=== PATIENT | female | born 1960 | race Caucasian/White ===

== ENCOUNTER 2021-07-29 13:07 | Emergency (ER) | payer BC, OTHER ==
[2021-07-29 13:49] LABS: BASOPHILS # (AUTO) 0.1 10^3/uL (0.0-0.1); BASOPHILS % (AUTO) 0.8 %; EOSINOPHILS % (AUTO) 0.2 %; HCT - HEMATOCRIT 39.8 % (37.0-47.0); HGB - HEMOGLOBIN 12.3 g/dL (12.0-16.0); LYMPHOCYTES # (AUTO) 1.1 10^3/uL (1.5-3.5); LYMPHOCYTES % (AUTO) 12.9 %; MEAN CORPUSCULAR HEMOGLOBIN 26.5 pg (27.0-31.0); MEAN CORPUSCULAR HGB CONC 30.9 g/dL (32.0-36.0); MEAN CORPUSCULAR VOLUME 85.8 fL (81.0-99.0); MEAN PLATELET VOLUME 9.4 fL (7.9-10.8); MONOCYTES # (AUTO) 0.9 10^3/uL (0.0-1.0); MONOCYTES % (AUTO) 10.6 %; NEUTROPHILS # (AUTO) 6.3 10^3/uL (1.5-6.6); NEUTROPHILS % (AUTO) 75.3 %; PLT - PLATELET COUNT 259 10^3/uL (130-450); RED BLOOD COUNT 4.64 10^6/uL (4.20-5.40); RED CELL DISTRIBUTION WIDTH 16.9 % (12.0-15.0); WHITE BLOOD COUNT 8.3 x10^3/uL (4.8-10.8)
[2021-07-29 14:01] LABS: ALBUMIN 3.7 g/dL (3.2-5.5); BILIRUBIN,TOTAL 0.7 mg/dL (0.2-1.0); CALCIUM 9.1 mg/dL (8.5-10.3); CREATININE 0.7 mg/dL (0.4-1.0); POTASSIUM 4.1 mmol/L (3.5-5.0); TOTAL PROTEIN 7.4 g/dL (6.7-8.2)
[2021-07-29 14:01] LABS: BILIRUBIN,URINE NEGATIVE (NEGATIVE); GLUCOSE, URINE (UA) NEGATIVE (NEGATIVE); KETONES,URINE (UA) NEGATIVE (NEGATIVE); LEUKOCYTE ESTERASE, URINE TRACE (NEGATIVE); NITRITE,URINE NEGATIVE (NEGATIVE); OCCULT BLOOD,URINE SMALL (NEGATIVE); PROTEIN,URINE NEGATIVE (NEGATIVE); UROBILINOGEN,URINE 0.2 (NORMAL) E.U./dL (NORMAL)
[2021-07-29 14:02] LABS: CLARITY,URINE CLEAR (CLEAR)
[2021-07-29 14:13] LABS: BACTERIA,URINE Rare /HPF (None Seen); RBC,URINE 0-5 /HPF (0-5); SQUAMOUS EPITHELIAL CELL,UR MOD Squamous (<= Few); WBC,URINE 0-3 /HPF (0-5)
[2021-07-29] MEDS ORDERED: fentaNYL 100 MCG/2 ML VIAL IVP STA ×2 (14:24→15:29)
--- NOTE | 2021-07-29 14:30 | ED Physician Documentation ---
History of Present Illness - Stated complaint Stated Complaint: R SIDE PX - Chief complaint Chief Complaint: Abd Pain - History obtained from History obtained from: Patient - History of Present Illness Timing: Yesterday Pain level max: 8 Pain level now: 8 - Additonal information Additional information: 61-year-old female presents to the emergency department with right sided abdominal pain since yesterday. She is visiting from [place]. History of a gastric sleeve in 2014. Cholecystectomy prior to that. Total hysterectomy as well. Pain is worse with palpation and movement. No fevers or chills. Mild nausea. No vomiting. Has not had similar symptoms previously. No urinary symptoms. No difficulty breathing or chest pain. 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 - Present Medications Home Medications: Ambulatory Orders Medication Instructions Recorded Confirmed Ondansetron Odt [Zofran] 4 mg TL Q6H PRN #10 tablet 07/29/21 Oxycodone HCl/Acetaminophen 1 - 2 each PO Q6H PRN #20 tablet 07/29/21 [Percocet 5-325 mg Tablet] predniSONE [Deltasone] 10 mg PO [id number] #42 tab 07/29/21 - Allergies Allergies/Adverse Reactions: Allergies Allergy/AdvReac Type Severity Reaction Status Date / Time cephalexin [From Keflex] Allergy Nausea Verified 07/29/21 13:28 codeine Allergy Itching Verified 07/29/21 13:28 hydromorphone [From Dilaudid] Allergy Rash Verified 07/29/21 13:28 Penicillins Allergy Hives Verified 07/29/21 13:28 - Living Situation Living Situation: reports: With family Living Arrangement: reports: At home PD ED PE NORMAL - Vitals Vital signs reviewed: Yes - General General: Alert and oriented X 3, No acute distress, Well developed/nourished - HEENT HEENT: Moist mucous membranes - Neck Neck: Supple, no meningeal sign - Cardiac Cardiac: RRR - Respiratory Respiratory: No respiratory distress, Clear bilaterally - Abdomen Abdomen: Normal bowel sounds, Soft, Non distended, Other (TTP R side of the abdomen. no peritoneal signs. ) - Back Back: No CVA TTP, No spinal TTP - Derm Derm: Warm and dry - Extremities Extremities: No edema - Neuro Neuro: Alert and oriented X 3 - Psych Psych: Normal mood, Normal affect Results - Vitals Vitals: Vital Signs - 24 hr 07/29/21 07/29/21 07/29/21 13:29 14:48 16:00 Temperature 37 C Heart Rate 75 67 64 Respiratory 18 16 18 Rate Blood Pressure 132/73 H 108/96 H 103/89 H O2 Saturation 99 97 98 07/29/21 17:42 Temperature 37.2 C Heart Rate 60 Respiratory 18 Rate Blood Pressure 124/62 O2 Saturation 100 Oxygen O2 Source Room air - Labs Labs: Laboratory Tests 07/29/21 07/29/21 07/29/21 13:25 13:42 13:42 WBC 8.3 RBC 4.64 Hgb 12.3 Hct 39.8 MCV 85.8 MCH 26.5 L MCHC 30.9 L RDW 16.9 H Plt Count 259 MPV 9.4 Neut # (Auto) 6.3 Lymph # (Auto) 1.1 L [place] # (Auto) 0.9 Eos # (Auto) 0.0 Baso # (Auto) 0.1 Absolute Nucleated RBC 0.00 Nucleated RBC % 0.0 Sodium 138 Potassium 4.1 Chloride 104 Carbon Dioxide 26 Anion Gap 8.0 BUN 16 Creatinine 0.7 Estimated GFR (MDRD) 85 L Glucose 87 Calcium 9.1 Total Bilirubin 0.7 AST 23 ALT 17 Alkaline Phosphatase 89 Total Protein 7.4 Albumin 3.7 Globulin 3.7 Albumin/Globulin Ratio 1.0 Lipase 43 Urine Color YELLOW Urine Clarity CLEAR Urine pH 7.0 Ur Specific [employer] 1.010 Urine Protein NEGATIVE Urine Glucose (UA) NEGATIVE Urine Ketones NEGATIVE Urine Occult Blood SMALL H Urine Nitrite NEGATIVE Urine Bilirubin NEGATIVE Urine Urobilinogen 0.2 (NORMAL) Ur Leukocyte Esterase TRACE H Urine RBC 0-5 Urine WBC 0-3 Ur Squamous Epith Cells MOD Squamous H Urine Bacteria Rare Ur Microscopic Review INDICATED Urine Culture Comments NOT INDICATED PD MEDICAL DECISION MAKING - ED course Complexity details: reviewed results, re-evaluated patient, considered differential, d/w patient ED course: 61-year-old female presents to the emergency department with abdominal pain. Remote history of gastric sleeve. No significant lab abnormalities. 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 We will start on pain medication and steroids for home and have her follow-up with her doctor when she returns home later this week for further evaluation of this. Patient is well- appearing, nontoxic. Afebrile. Patient counseled regarding signs and symptoms for which I believe and urgent re-evaluation would be necessary. Patient with good understanding of and agreement to plan and is comfortable going home at this time This document was made in part using voice recognition software. While efforts are made to proofread this document, sound alike and grammatical errors may occur. IMPRESSION: 1. Mid mesenteric fat stranding as described above which may represent mesenteric panniculitis. 2. Prior gastric sleeve surgery. No bowel obstruction or abnormal bowel wall thickening. Mild fecal stasis in the colon. No free fluid of free air. 3. Bibasilar dependent atelectasis. 4. Hepatic steatosis. No discrete hepatic lesion. Prior cholecystectomy. 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 We will start you on steroids for this. Is importantly follow-up with your doctor next week for further care and likely further testing. Please return if you worsen. Your prescriptions were sent to [facility] in [place] I am prescribing a short course of narcotic pain medication for you. These are potentially dangerous and addictive medications that should be used carefully. These medications may constipate you. Take an [id number] stool softener (docusate) twice daily with plenty of water while taking these medications. If you go 24 hours without a bowel movement, take [id number] miralax, per package instructions. Do not drink or drive while taking these medications. If you received narcotic or sedating medications while in the emergency department, do not drive for 24 hours. Store this medication in a safe, secure place and out of reach of children. It is a violation of federal law to give or sell this medication to another person or to use in a manner other than prescribed. The ED will not refill narcotic prescriptions, including prescriptions lost or stolen. To dispose of unwanted medications: 1. [facility] at [address] in [place] has a medication drop box. They accept prescription medications (in pill form) Wednesday through Wednesday 9:00 a.m. to 5:00 p.m. 2. [facility] accepts prescription medications (in pill form only) for disposal year round. Call for more information. 3. Contact the [facility] for the next [facility] sponsored prescription drug collection event. , [phone], or [phone]; CT abd/pelvis: IMPRESSION: 1. Mid mesenteric fat stranding as described above which may represent mesenteric radiculitis. 2. Prior gastric sleeve surgery. No bowel obstruction or abnormal bowel wall thickening. Mild fecal stasis in the colon. No free fluid of free air. 3. Bibasilar dependent atelectasis. 4. Hepatic steatosis. No discrete hepatic lesion. Prior cholecystectomy. Discharge Date/Time: 07/29/21 17:53
[2021-07-29] MEDS ORDERED: IOVERSOL 320 100 ML VIAL IVP ONE ×2 (14:31→15:58)
[2021-07-29] MEDS ORDERED: IOVERSOL 320 50 ML VIAL ONE (14:31)
[2021-07-29] MEDS ORDERED: IOVERSOL 320 50 ML VIAL PO ONE (16:00)
--- NOTE | 2021-07-29 16:14 | CT Report ---
PROCEDURE: Abdomen/Pelvis W INDICATIONS: R sided abd pain, h/o gastric sleeve, CCY, LISETTE CONTRAST: IV CONTRAST: Optiray 320 ml: 100 PO CONTRAST: Optiray 320 ml50 TECHNIQUE: After the administration of IV and oral contrast, 5 mm thick sections acquired from the diaphragms to the symphysis. 5 mm thick coronal and sagittal reformats were acquired. For radiation dose reducti on, the following was used: automated exposure control, adjustment of mA and/or kV according to vikash ent size. COMPARISON: None. FINDINGS: Image quality: Excellent. ABDOMEN: Lung bases: Bibasilar dependent atelectasis is seen. Heart size is normal. Solid organs: Liver is normal in size and show mildly heterogeneous liver parenchymal enhancement and decreased liver parenchymal density consistent with hepatic steatosis. Spleen show normal size and e nhancement. Gallbladder is surgically absent. Biliary system is non dilated. Pancreas enhances norm ally. No adrenal nodules. Kidneys demonstrate normal size and enhancement, without hydronephrosis. Peritoneum and bowel: Patient is status post prior gastric sleeve surgery with postsurgical changes s een. There is no bowel obstruction. Area of mesenteric fat stranding in mid abdomen adjacent to super ior mesenteric vessels and inferior to the head and body of pancreas is seen. No other area of abnorm al mesenteric fat stranding or. No bowel wall thickening. No free fluid of free air. Nodes and vessels: No retroperitoneal or mesenteric adenopathy by size criteria. Aorta and inferior vena cava are normal in size. Miscellaneous: No ventral hernias. PELVIS: Genitourinary: Bladder wall thickness is normal. Miscellaneous: No inguinal hernias or adenopathy. Bones: No suspicious bony lesions. No vertebral body compression fractures. IMPRESSION: 1. Mid mesenteric fat stranding as described above which may represent mesenteric radiculitis. 2. Prior gastric sleeve surgery. No bowel obstruction or abnormal bowel wall thickening. Mild fecal s tasis in the colon. No free fluid of free air. 3. Bibasilar dependent atelectasis. 4. Hepatic steatosis. No discrete hepatic lesion. Prior cholecystectomy. Reviewed by: Bartolo Edwards MD on 07/29/2021 4:12 PM PDT Approved by: Bartolo Edwards MD on 07/29/2021 4:12 PM PDT Station ID: [id number]
[2021-07-29] MEDS ORDERED: oxyCODONE 5 MG TABLET PO STA (17:32)
[2021-07-29] MEDS ORDERED: methylPREDNISolone SUCCINATE 125 MG/2 ML VIAL IVP STA (17:33)
[2021-07-29 17:44] VITALS: BP 124/62
== END 2021-07-29 17:53 | disposition home or self-care (01) ==
LOC: ED 13:07
DX: K65.4 Sclerosing mesenteritis (principal); K76.0 Fatty (change of) liver, not elsewhere classified; Z98.84 Bariatric surgery status; Z90.49 Acquired absence of other specified parts of digestive tract; Z90.710 Acquired absence of both cervix and uterus
CPT/HCPCS: 36415; 74177; 80053; 81001; 83690; 85025; 96374; 96375; 96376; 99284; A9270; Q9967; 81003; 87086